=== PATIENT | male | born 1975 | race Two or more races ===

== ENCOUNTER 2018-07-16 10:09 | Outpatient (CLI) | payer OTHER ==
[~2018-07-16 10:09] MED LIST: COZAAR100 MG PO
== END 2018-07-16 12:19 | disposition home or self-care (01) ==
LOC: SONOGRAMA 10:09
DX: E04.2 Nontoxic multinodular goiter (principal)

== ENCOUNTER 2019-10-09 15:46 | Emergency (ER) | payer OTHER ==
[~2019-10-09] VITALS: Ht 165.1 cm; Wt 81.2 kg
[2019-10-09] MEDS ORDERED: LEVOTHROXINE (17:01)
== END 2019-10-09 20:53 | disposition home or self-care (01) ==
LOC: ER 15:46
DX: R51 Headache (principal)

== ENCOUNTER 2020-04-26 14:33 | Outpatient (CLI) | payer OTHER ==
[~2020-04-26 14:33] MED LIST changes: +LEVOTHROXINE
== END 2020-04-26 14:37 | disposition home or self-care (01) ==
LOC: SONOGRAMA 14:33 → MAMO-SONO 14:45
PROVIDERS: ATTEND Internal Medicine
DX: E04.2 Nontoxic multinodular goiter (principal)

== ENCOUNTER 2021-05-09 09:04 | Outpatient (CLI) | payer OTHER | END 2021-05-09 09:05 | disposition home or self-care (01) | LOC: SONOGRAMA 09:04 | PROVIDERS: ATTEND Internal Medicine | DX: E04.2 Nontoxic multinodular goiter (principal) ==